=== PATIENT | female | born 1995 | race Caucasian/White ===

== ENCOUNTER → 2023-02-03 | Outpatient (CLI) | payer BC ==
[2023-02-03 19:59] LABS: Basophils # (A) 0.05 X 10*3/uL (0.00-0.10); Basophils % (A) 0.7 %; Eosinophils # (A) 0.21 X 10*3/uL (0.04-0.35); Eosinophils % (A) 3.1 %; HCT 44.2 % (37.2-46.3); Lymphocytes # (A) 1.19 X 10*3/uL (0.90-5.00); Lymphocytes % (A) 17.3 %; MCH 26.9 pg (27.0-32.0); MCHC 31.7 d/dL (32.0-37.0); Mean Platelet Volume 11.2 FL (9.5-12.2); Monocytes # (A) 0.52 X 10*3/uL (0.20-1.00); Monocytes % (A) 7.6 %; NRBC Per 100 WBC 0 X 10*3/uL (0.00-0.01); Neutrophils # (A) 4.87 X 10*3/uL (1.80-7.70); Platelet Count 320 X 10*3/uL (140-440); RDW 13.4 % (11.5-14.5); WBC 6.86 X 10*3/uL (4.50-10.00)
[2023-02-03 20:41] LABS: ALT 15 U/L (8-44); AST 16 U/L (13-35); Albumin 4.6 d/dL (3.8-4.9); Albumin/Globulin Ratio 2.42 Ratio (1.60-3.17); Alkaline Phosphatase 93 U/L (41-126); Bilirubin, Conjugated <0.20 mg/dL (0.20-0.40); Bilirubin,Unconjugated >0.10 mg/dL (0.20-1.00); Globulin 1.9 d/dL (1.6-3.3); Total Bilirubin 0.3 mg/dL (0.3-1.2); Total Protein 6.5 d/dL (6.2-8.2)
== END | disposition home or self-care (01) ==
LOC: LABWHC1 13:01
PROVIDERS: ATTEND Student in an Organized Health Care Education/Training Program
DX: Z51.81 Encounter for therapeutic drug level monitoring (principal); M06.09 Rheumatoid arthritis without rheumatoid factor, multiple sites
CPT/HCPCS: 36415; 80076; 82565; 85025; 86140

== ENCOUNTER → 2023-05-26 | Outpatient (CLI) | payer BC ==
[2023-05-26 18:00] LABS: ALT 14 U/L (8-44); AST 18 U/L (13-35); Albumin 4.6 g/dL (3.8-4.9); Alkaline Phosphatase 101 U/L (41-126); Bilirubin, Conjugated <0.20 mg/dL (0.20-0.40); Bilirubin,Unconjugated >0 mg/dL (0.20-1.00); Total Bilirubin 0.2 mg/dL (0.3-1.2); Total Protein 6.6 g/dL (6.2-8.2)
[2023-05-26 19:41] LABS: Basophils # (A) 0.06 X 10*3/uL (0.00-0.10); Basophils % (A) 0.9 %; Eosinophils # (A) 0.25 X 10*3/uL (0.04-0.35); Eosinophils % (A) 3.7 %; HCT 43.5 % (37.2-46.3); HGB 13.9 g/dL (12.0-15.0); Lymphocytes % (A) 20.6 %; MCH 26.7 pg (27.0-32.0); MCV 83.7 FL (80.0-97.0); Mean Platelet Volume 11.7 FL (9.5-12.2); Monocytes # (A) 0.47 X 10*3/uL (0.20-1.00); Monocytes % (A) 6.9 %; NRBC Per 100 WBC 0 X 10*3/uL (0.00-0.01); Neutrophils % (A) 67.6 %; Platelet Count 315 X 10*3/uL (140-440); RDW 13.3 % (11.5-14.5)
== END | disposition home or self-care (01) ==
LOC: LABWHC1 13:39
PROVIDERS: ATTEND Student in an Organized Health Care Education/Training Program
DX: Z51.81 Encounter for therapeutic drug level monitoring (principal); M06.09 Rheumatoid arthritis without rheumatoid factor, multiple sites; Z79.899 Other long term (current) drug therapy
CPT/HCPCS: 36415; 80076; 82565; 85025; 86140